=== PATIENT | female | born 1980 | race American Indian/Alaskan Native ===

== ENCOUNTER 2018-12-10 08:02 | Emergency (ER) | payer MEDICAID ==
[2018-12-10 08:11] VITALS: BP 132/92
[2018-12-10 08:54] LABS: Basophils % (Auto) 0.7 % (0.0-1.8); Eosinophils # (Auto) 0.1 K/mm3 (0.0-0.4); Eosinophils % (Auto) 1.3 % (0.0-4.3); Hematocrit 39.1 % (30.3-42.9); Hemoglobin 13.5 gm/dl (10.1-14.3); Lymphocytes # (Auto) 2.4 K/mm3 (1.2-5.4); Lymphocytes % (Auto) 48.9 % (13.4-35.0); Mean Corpuscular HGB Conc 34 % (30-34); Mean Corpuscular Volume 90 fl (79-97); Monocytes # (Auto) 0.5 K/mm3 (0.0-0.8); Monocytes % (Auto) 9.8 % (0.0-7.3); Platelet Count 293 K/mm3 (140-440); Red Blood Count 4.32 M/mm3 (3.65-5.03); Red Cell Distribution Width 14.5 % (13.2-15.2)
--- NOTE | 2018-12-10 08:55 | Emergency Department Report ---
ED Abdominal Pain HPI - General Chief Complaint: Abdominal Pain Stated Complaint: R FLANK PAIN Time Seen by Provider: 12/10/18 08:55 Source: patient, family Mode of arrival: Ambulatory Limitations: No Limitations - History of Present Illness Initial Comments: This is a 38-year-old female here for that she has right flank pain since last night. Denies any history of kidney stone. No blood in her urine. She reports that she is having some urinary frequency but no burning. Denies any concern for STD or any vaginal discharge. Denies any history of kidney disease. Past medical history of seizures and requested to have her seizure medicine renewed. MD Complaint: flank pain -: Last night Location: R flank Radiation: none Migration to: no migration Severity: moderate Severity scale (0 -10): 6 Quality: sharp Consistency: constant Improves With: nothing Worsens With: nothing Associated Symptoms: denies: nausea, vomiting, diarrhea, fever, chills, constipation, dysuria, hematemesis, hematochezia, melena, hematuria, anorexia, syncope - Related Data LMP Date: 08/25/18 Previous Rx's Medication Instructions Recorded Last Taken Type Pnv95/Ferrous Fumarate/FA 1 each PO QDAY #90 tablet 10/03/13 Unknown Rx [ Vitamins] Ibuprofen [Motrin] 800 mg PO Q8HR PRN #12 tablet 12/10/18 Unknown Rx Sulfamethoxazole/Trimethoprim 1 each PO BID 7 Days #14 tablet 12/10/18 Unknown Rx [Bactrim DS TAB] Allergies Allergy/AdvReac Type Severity Reaction Status Date / Time No Known Allergies Allergy Unverified 10/03/13 09:27 ED Review of Systems ROS: Stated complaint: R FLANK PAIN Other details as noted in HPI Constitutional: denies: chills, fever ENT: denies: throat pain Respiratory: denies: cough, shortness of breath, SOB with exertion, wheezing Cardiovascular: denies: chest pain, palpitations, dyspnea on exertion, edema, syncope Gastrointestinal: other (Flank pain). denies: abdominal pain, nausea, vomiting, diarrhea, constipation, hematemesis, hematochezia Genitourinary: frequency. denies: urgency, dysuria, hematuria, discharge, abnormal menses, dyspareunia Musculoskeletal: denies: back pain, joint swelling, arthralgia, myalgia Skin: denies: rash Neurological: denies: headache, weakness, numbness, paresthesias, confusion, abnormal gait, vertigo ED Past Medical Hx - Past Medical History Previous Medical History?: No Hx Seizures: Yes - Surgical History Past Surgical History?: No Hx Appendectomy: No - Family History Family history: hypertension - Social History Smoking Status: Never Smoker Substance Use Type: None - Medications Home Medications: Home Medications Medication Instructions Recorded Confirmed Last Taken Type Pnv95/Ferrous Fumarate/FA 1 each PO QDAY #90 tablet 10/03/13 Unknown Rx [ Vitamins] Ibuprofen [Motrin] 800 mg PO Q8HR PRN #12 tablet 12/10/18 Unknown Rx Sulfamethoxazole/Trimethoprim 1 each PO BID 7 Days #14 tablet 12/10/18 Unknown Rx [Bactrim DS TAB] ED Physical Exam - General Limitations: No Limitations General appearance: alert, in no apparent distress - Head Head exam: Present: atraumatic, normocephalic, normal inspection - Eye Eye exam: Present: normal appearance, PERRL, EOMI Pupils: Present: normal accommodation - Neck Neck exam: Present: normal inspection, full ROM. Absent: tenderness - Respiratory Respiratory exam: Present: normal lung sounds bilaterally. Absent: respiratory distress, chest wall tenderness - Cardiovascular Cardiovascular Exam: Present: regular rate, normal rhythm, normal heart sounds - GI/Abdominal GI/Abdominal exam: Present: soft, normal bowel sounds. Absent: distended, tenderness, guarding, rebound, rigid, organomegaly, mass - Extremities Exam Extremities exam: Present: normal inspection, full ROM, normal capillary refill. Absent: tenderness, pedal edema - Back Exam Back exam: Present: normal inspection, CVA tenderness (R), other (Ambulates without any difficulties). Absent: full ROM, CVA tenderness (L), muscle spasm, paraspinal tenderness, vertebral tenderness, rash noted - Neurological Exam Neurological exam: Present: alert, oriented X3, normal gait - Psychiatric Psychiatric exam: Present: normal affect, normal mood - Skin Skin exam: Present: warm, dry, intact, normal color. Absent: rash ED Course Vital Signs 12/10/18 08:09 Temperature 97.9 F Pulse Rate 77 Respiratory 18 Rate Blood Pressure 132/92 O2 Sat by Pulse 100 Oximetry - Reevaluation(s) Reevaluation #1: 12/10/18 11:24 Patient given [place] 5/325 mg 2 tablets by mouth and Zofran 4 mg ODT which relieved her pain ED Medical Decision Making - Lab Data Result diagrams: 12/10/18 08:37 12/10/18 08:37 Lab Results 12/10/18 12/10/18 12/10/18 Range/Units 08:37 08:37 08:37 WBC 5.0 (4.5-11.0) K/mm3 RBC 4.32 (3.65-5.03) M/mm3 Hgb 13.5 (10.1-14.3) gm/dl Hct 39.1 (30.3-42.9) % MCV 90 (79-97) fl MCH 31 (28-32) pg MCHC 34 (30-34) % RDW 14.5 (13.2-15.2) % Plt Count 293 (140-440) K/mm3 Lymph % (Auto) 48.9 H (13.4-35.0) % Mcdowell % (Auto) 9.8 H (0.0-7.3) % Eos % (Auto) 1.3 (0.0-4.3) % Baso % (Auto) 0.7 (0.0-1.8) % Lymph # 2.4 (1.2-5.4) K/mm3 Mcdowell # 0.5 (0.0-0.8) K/mm3 Eos # 0.1 (0.0-0.4) K/mm3 Baso # 0.0 (0.0-0.1) K/mm3 Seg Neutrophils % 39.3 L (40.0-70.0) % Seg Neutrophils # 2.0 (1.8-7.7) K/mm3 Sodium 136 L (137-145) mmol/L Potassium 4.2 (3.6-5.0) mmol/L Chloride 100.1 (98-107) mmol/L Carbon Dioxide 25 (22-30) mmol/L Anion Gap 15 mmol/L BUN 12 (7-17) mg/dL Creatinine 0.6 L (0.7-1.2) mg/dL Estimated GFR > 60 ml/min BUN/Creatinine Ratio 20 % Glucose 97 (65-100) mg/dL Calcium 9.3 (8.4-10.2) mg/dL Total Bilirubin 0.70 (0.1-1.2) mg/dL AST 14 (5-40) units/L ALT 9 (7-56) units/L Alkaline Phosphatase 87 (35-129) units/L Total Protein 7.9 (6.3-8.2) g/dL Albumin 3.9 (3.9-5) g/dL Albumin/Globulin Ratio 1.0 % HCG, Qual Negative (Negative) Urine Color (Yellow) Urine Turbidity (Clear) Urine pH (5.0-7.0) Ur Specific Shelby (1.003-1.030) Urine Protein (Negative) mg/dL Urine Glucose (UA) (Negative) mg/dL Urine Ketones (Negative) mg/dL Urine Blood (Negative) Urine Nitrite (Negative) Urine Bilirubin (Negative) Urine Urobilinogen (<2.0) mg/dL Ur Leukocyte Esterase (Negative) Urine WBC (Auto) (0.0-6.0) /HPF Urine RBC (Auto) (0.0-6.0) /HPF U Epithel Cells (Auto) (0-13.0) /HPF Urine Bacteria (Auto) (Negative) /HPF 12/10/18 Range/Units 08:46 WBC (4.5-11.0) K/mm3 RBC (3.65-5.03) M/mm3 Hgb (10.1-14.3) gm/dl Hct (30.3-42.9) % MCV (79-97) fl MCH (28-32) pg MCHC (30-34) % RDW (13.2-15.2) % Plt Count (140-440) K/mm3 Lymph % (Auto) (13.4-35.0) % Mcdowell % (Auto) (0.0-7.3) % Eos % (Auto) (0.0-4.3) % Baso % (Auto) (0.0-1.8) % Lymph # (1.2-5.4) K/mm3 Mcdowell # (0.0-0.8) K/mm3 Eos # (0.0-0.4) K/mm3 Baso # (0.0-0.1) K/mm3 Seg Neutrophils % (40.0-70.0) % Seg Neutrophils # (1.8-7.7) K/mm3 Sodium (137-145) mmol/L Potassium (3.6-5.0) mmol/L Chloride (98-107) mmol/L Carbon Dioxide (22-30) mmol/L Anion Gap mmol/L BUN (7-17) mg/dL Creatinine (0.7-1.2) mg/dL Estimated GFR ml/min BUN/Creatinine Ratio % Glucose (65-100) mg/dL Calcium (8.4-10.2) mg/dL Total Bilirubin (0.1-1.2) mg/dL AST (5-40) units/L ALT (7-56) units/L Alkaline Phosphatase (35-129) units/L Total Protein (6.3-8.2) g/dL Albumin (3.9-5) g/dL Albumin/Globulin Ratio % HCG, Qual (Negative) Urine Color Straw (Yellow) Urine Turbidity Clear (Clear) Urine pH 5.0 (5.0-7.0) Ur Specific Shelby 1.010 (1.003-1.030) Urine Protein <15 mg/dl (Negative) mg/dL Urine Glucose (UA) Neg (Negative) mg/dL Urine Ketones Neg (Negative) mg/dL Urine Blood Sm (Negative) Urine Nitrite Neg (Negative) Urine Bilirubin Neg (Negative) Urine Urobilinogen < 2.0 (<2.0) mg/dL Ur Leukocyte Esterase Neg (Negative) Urine WBC (Auto) 1.0 (0.0-6.0) /HPF Urine RBC (Auto) 2.0 (0.0-6.0) /HPF U Epithel Cells (Auto) < 1.0 (0-13.0) /HPF Urine Bacteria (Auto) 1+ (Negative) /HPF Urine culture sent - Radiology Data Radiology results: report reviewed CT scan of the abdomen and pelvis without contrast treated by radiologist and report reviewed by myself. Please see details below Findings [facility] [address] [place] [address] Cat Scan Report Signed Patient: LANDEN PIERSON MR#: [id number] : 1980 Acct:[id number] Age/Sex: 38 / F ADM Date: 12/10/18 Loc: ED Attending Dr: Ordering Physician: JAVIER GOETZ Date of Service: 12/10/18 Procedure(s): CT abdomen pelvis wo con Accession Number(s): [id number] cc: JAVIER GOETZ CT abdomen pelvis wo con INDICATION: right flank pain and back pain with urine freq. TECHNIQUE: All CT scans at this location are performed using CT dose reduction for ALARA by means of automated exposure control. COMPARISON: None available. FINDINGS: Lung bases are clear. Liver, gallbladder, spleen and pancreas are negative. Kidneys and adrenals appear unremarkable. No hydronephrosis or renal calculi. Pelvis Urinary bladder is unremarkable. Distal ureters are not well seen, but there is no evidence of ureteral calculi. Uterus and ovaries are negative. Normal appendix. No free fluid or inflammation. Benign bone island in the left ilium. No acute skeletal lesions. IMPRESSION: 1. No urinary tract calculi or other significant abnormalities. Signer Name: Jone Carbajal MD Signed: 12/10/2018 10:09 AM Workstation Name: [id number] Transcribed By: TM Dictated By: Jone Carbajal MD Electronically Authenticated By: Jone Carbajal MD Signed Date/Time: 12/10/18 1009 DD/ 1007 TD/TT: - Medical Decision Making This is a 38-year-old patient here reported that she is having flank pain since last night. She was given [place] 5/325 2 tablets when necessary emergency room along with Zofran 4 mg and she is pain-free at present. Patient urinalysis revealed UTI. Urine culture sent and pending. Lab work is stable and test is negative. CT scan of the abdomen and pelvis contrast with negative findings. I discussed labs, CT scan results and diagnosis of the patient's along with treatment plan and she was understanding. Patient discharged home with family member in stable condition with prescription for Bactrim DS and Motrin. She requested a refill on Dilantin and she said that she could not get her pharmacy to find out what dose she is on. She is not able to tell me the dose and she says she will call her doctor [facility] to get a refill. - Differential Diagnosis kidney stones, pyelonephritis, UTI, , muscle strain Critical care attestation.: If time is entered above; I have spent that time in minutes in the direct care of this critically ill patient, excluding procedure time. ED Disposition Clinical Impression: Acute cystitis with hematuria Disposition: DC-01 TO HOME OR SELFCARE Is pt being admited?: No Does the pt Need Aspirin: No Condition: Stable Instructions: Urinary Tract Infection in Women (ED) Additional Instructions: f/u with Primary care in 1 days as prescribed If your condition worsens he can return to the emergency room otherwise follow- up with PCP [facility]: [facility]Primary Care Provider[facility] - 12/11/18 Forms: Accompanied Note, Work/School Release Form(ED)
[2018-12-10 08:58] LABS: Bacteria,Urine 1+ /HPF (Negative); Bilirubin,Urine NEG (Negative); Blood,Urine SM (Negative); Color,Urine Straw (Yellow); Protein,Urine <15 mg/dL mg/dL (Negative); Urobilinogen,Urine < 2.0 mg/dL (<2.0)
[2018-12-10 09:08] LABS: Alanine Aminotransferase 9 units/L (7-56); Albumin 3.9 g/dL (3.9-5); BUN/Creatinine Ratio 20; Blood Urea Nitrogen 12 mg/dL (7-17); Calcium 9.3 mg/dL (8.4-10.2); Hemolysis Index 23
[2018-12-10] MEDS ORDERED: NORCO 5/325 PO ONE (09:17)
[2018-12-10] MEDS ORDERED: ZOFRAN ODT PO ONE (09:17)
--- NOTE | 2018-12-10 10:13 | Cat Scan Report ---
CT abdomen pelvis wo con INDICATION: right flank pain and back pain with urine freq. TECHNIQUE: All CT scans at this location are performed using CT dose reduction for ALARA by means of automated e xposure control. COMPARISON: None available. FINDINGS: Lung bases are clear. Liver, gallbladder, spleen and pancreas are negative. Kidneys and adrenals appear unremarkable. No hydronephrosis or renal calculi. Pelvis Urinary bladder is unremarkable. Distal ureters are not well seen, but there is no evidence of ureter al calculi. Uterus and ovaries are negative. Normal appendix. No free fluid or inflammation. Benign bone island in the left ilium. No acute skeletal lesions. IMPRESSION: 1. No urinary tract calculi or other significant abnormalities. Signer Name: Jone Carbajal MD Signed: 12/10/2018 10:09 AM Workstation Name: [id number]
== END 2018-12-10 11:45 | disposition home or self-care (01) ==
LOC: ED 08:02
DX: N30.01 Acute cystitis with hematuria (principal); Z79.899 Other long term (current) drug therapy
CPT/HCPCS: 36415; 74176; 80053; 81001; 84703; 85025; 87086; Q0162